=== PATIENT | male | born 1995 | race Caucasian/White ===

== ENCOUNTER 2020-07-27 23:56 | Emergency (ER) | payer OTHER, MEDICAID, SELFPAY ==
[2020-07-27 23:57] VITALS: BP 132/82; PULSE 108; RESP 15; TEMP 37.3; O2SAT 99; BMI 21.5
--- NOTE | 2020-07-28 00:05 | EKG12_ITS ---
Test Reason : CP Blood Pressure : / mmHG Vent. Rate : 108 BPM Atrial Rate : 108 BPM P-R Int : 124 ms QRS Dur : 078 ms QT Int : 316 ms P-R-T Axes : 075 075 -06 degrees QTc Int : 423 ms Sinus tachycardia Nonspecific T wave abnormality Abnormal ECG Confirmed by ALLAN SEPULVEDA, VINICIUS ([id number]), social media editor GLENDY RENNER ([id number]) on 07/28/2020 9:09:07 AM Referred By: WILLIAM Confirmed By:VINICIUS LEMUS MD
[2020-07-28 00:27] VITALS: BP 119/83; PULSE 104; RESP 15; O2SAT 97
--- NOTE | 2020-07-28 00:43 | RAD_ITS ---
STUDY: X-RAY CHEST REASON FOR EXAM: Male, 24 years old. CHEST PAIN TECHNIQUE: Single AP portable view of the chest. 2 images COMPARISON: None. FINDINGS: There is no demonstrated pneumothorax. There are superimposed monitor leads. The lungs are clear and hyperexpanded. There is no demonstrated pleural abnormality. Normal size heart. Normal mediastinum and erik. Normal visualized pulmonary arteries. Normal visualized aortic arch and descending thoracic aorta. Normal visualized thoracic spine. Normal visualized ribs, clavicles, and shoulders. There is no demonstrated abnormality of the visualized soft tissue structures of the upper abdomen. RAD/Chest 1 View (Portable) IMPRESSION: Hyperinflation. There is no demonstrated pneumothorax. Electronically Signed: Mireya Ferrer MD at 1:13 EDT , Service support ,
--- NOTE | 2020-07-28 00:44 | ED.VIS.GEN ---
History of Present Illness Chief Complaint: Chest Pain Narrative: Patient presents with subjective fevers, some chest pain on the right side its been on and off for about a week and a half. He has no cough, he has no upper airway congestion. He denies any significant dyspnea. He has no back pain or tearing sensation. No abdominal pain nausea or vomiting. He was seen at an urgent care, was prescribed amoxicillin he significantly improved and now symptoms are somewhat returning. He was not tested for Covid. Past Medical History - Allergies and Home Meds Allergies/Adverse Reactions: Allergies No Known Allergies Allergy (Verified 07/27/20 23:57) Primary Care Physician: NOT,DEFINED [NON-STAFF] - Past Medical History: None Smoking Status: Heavy Smoker (>10/day) Review of Systems General: Reports: Fever, Subjective Eyes: Denies: Visual changes - bilaterally Cardiovascular: Reports: Chest pain. Denies: Palpitations, Heart racing Respiratory: Denies: Dyspnea, Cough Gastrointestinal: Denies: Abdominal pain, Nausea Genitourinary: Denies: Dysuria Musculoskeletal: Denies: Myalgias Neurological: Denies: Headache, Weakness Hematologic: Denies: Easy bruising, Easy bleeding Physical Exam Vital Signs/Narrative: Vital Signs Temp Pulse Resp BP Pulse Ox 07/28/20 00:27 104 H 15 119/83 H 97 07/27/20 23:57 99.1 F 108 H 15 132/82 H 99 General: Well nourished, - - He appears comfortable in bed. ENT: Moist mucous membranes. Negative for: Nasal congestion Cardiovascular: Regular rate, Regular rhythm Respiratory: No distress, CTA bilaterally Abdomen: Soft, Nontender Back: Nontender, Normal Inspection. Negative for: CVA tenderness Extremities: Nontender, No edema Skin: Normal color Neurological: Alert, Normal Strength, Normal Sensation Diagnostic/Tx/Re-eval - Medical Decision Making Is a normal work-up he appears well, I believe he safe for discharge. He likely has a viral upper respiratory infection though it is self-limited however I told him that he has the possibility of having Covid and I will not get the results for another few days, until then he needs to self quarantine. ED Disposition - Plan for ED Patient: Disposition: Home or Assisted Living Diagnosis: Upper respiratory infection Prescriptions: Naproxen [Naprosyn] 500 mg PO BID PRN #20 tab Transmission Status: Pending to [facility]/pharmacy #[id number] Referrals: Aime Henderson MD [STAFF PHYSICIAN] -
[2020-07-28 01:14] LABS: Absolute Lymphocyte Count 5.29 X10^3/uL (0.83-4.51); Absolute Neutrophil Count 4.7 X10^3/uL (2.0-7.7); Basophil# 0.18 X10^3/uL; Basophil% 1.5 % (0-1); Eosinophil# 0.86 X10^3/uL; Eosinophils% 7.1 % (0-5); Hematocrit 39.4 % (40-54); Hemoglobin 13.5 g/dL (13.0-16.5); Lymphocyte # 5.29 X10^3/ul (4.0); Lymphocyte % 43.9 % (19-41); Mean Corp Hgb Conc 34.3 g/dL (32-36); Mean Corpuscular Hgb 28.5 pg (27.0-32.0); Mean Corpuscular Volume 83.3 fL (80-94); Mean Platelet Vol. 8.6 fl (6.2-12.0); Monocyte# 0.96 X10^3/uL; NRBC Flagged by Analyzer 0 % (0-5); Neutrophil # 4.67 X10^3/uL (2.7-7.7); Neutrophil % 38.8 % (47-70); POSITIVE DIFFERENTIAL YES; POSITIVE MORPHOLOGY YES; Platelet Count 261 K/mm3 (150-450); RBC Distribution Width CV 13.6 % (11.6-14.6); RBC Distribution Width SD 41.3 fl (35.1-43.9); Red Blood Count 4.73 M/mm3 (4.6-6.2)
[2020-07-28 01:28] LABS: D-Dimer Quantitative (DVT/PE) 1.51 FEU/ug/m (0.27-0.49)
--- NOTE | 2020-07-28 01:29 | CT_ITS ---
STUDY: CTA CHEST REASON FOR EXAM: Male, 24 years old. CP TODAY WITH ELEVATED D-DIMER, SMOKER RADIATION DOSAGE (If Supplied By Facility): CTDIvol = ( 7.87 ) mGy, DLP = ( 221.99 ) mGycm TECHNIQUE: The examination was performed with the intravenous administration of IV 75mL Isovue-370. Post-processing of the angiographic images was performed, with multiplanar reformation and 3D reconstruction. Individualized dose optimization techniques were used for this CT. COMPARISON: Portable chest x-ray 07/28/2020 FINDINGS: Normal enhancement of the main pulmonary artery and right and left pulmonary arteries. Normal enhancement of the bilateral peripheral pulmonary arteries. There is no demonstrated pulmonary embolism. Normal thoracic aorta and visualized great vessels. There is no demonstrated aortic dissection. Normal heart and pericardium. Normal mediastinum. Normal hilar regions. Normal visualized trachea and bronchi. The lungs are hyper expanded, with flattening of the hemidiaphragms. Hyperinflation of lung parenchyma with bilateral apical small bullae formation. Small noncalcified nodule in the right lower lobe image 133 series 2, measuring 0.26 cm. Small noncalcified nodule in the left lower lobe adjacent to the pleura is 0.21 cm image 76 series 2. Normal pleura. Normal chest wall structures. Normal osseous structures. Normal visualized upper abdomen. CT/CTA Chest W/WO Contrast IMPRESSION: No demonstrated pulmonary embolism, aneurysm, leak or arterial dissection. Hyperinflation with mild apical bullous formation. Bilateral small less than 3 mm noncalcified pulmonary nodules as above. The?Fleischner Society pulmonary nodule recommendations 2017 guidelines Multiple Multiple nodules size: <6 mm * low-risk patients: no routine follow-up * high-risk patients: optional CT at 12 months Electronically Signed: Mireya Ferrer MD at 2:26 EDT , Service support ,
--- NOTE | 2020-07-28 01:32 | ED.RN ---
D-DIMER OF 1.51 REPORTED TO . VERBALIZES UNDERSTANDING
[2020-07-28 01:35] LABS: ALB/GLOB Ratio 0.9 RATIO (0.9-2.4); AST(SGOT) 41 U/L (15-37); Alanine Aminotransfer ALT/SGPT 65 U/L (16-61); Albumin, Serum 3.3 g/dL (3.2-5.0); Alkaline Phosphatase 87 U/L (45-117); Anion Gap 5 (5-15); BUN 17 mg/dL (7-18); BUN/Creat Ratio 17.2 RATIO (10-20); Calcium,Total 8.6 mg/dL (8.5-10.1); Chloride 105 mmol/L (98-107); Creatinine, Serum 0.99 mg/dL (0.70-1.30); Differential Indicated SCAN CRITERIA MET; EST Glomerular Filtration Rate 97 mL/min (>60); Est Glom Filt Rate - Afr Amer 117 mL/min (>60); Estimated Creatinine Clearance 96.92 ml/min; Globulin 3.8 g/dL (2.2-4.2); Glucose 114 mg/dL (74-106); Protein, Total 7.1 g/dL (6.4-8.2); Sodium Level 136 mmol/L (136-145)
[2020-07-28 01:36] LABS: Differential Comment SCANNED
[2020-07-28 02:00] VITALS: BP 122/80; PULSE 95; RESP 16; O2SAT 98
[2020-07-28 03:02] VITALS: BP 161/72; PULSE 99; RESP 15; O2SAT 100
== END 2020-07-28 03:06 | disposition home or self-care (01) ==
PROVIDERS: Emergency Provider Emergency Medicine
DX: J06.9 Acute upper respiratory infection, unspecified (principal); F17.200 Nicotine dependence, unspecified, uncomplicated
CPT/HCPCS: 71045; 71275; 80053; 84484; 85025; 85379; 87635; 93005; 99285; Q9967; A4216; U0003

== ENCOUNTER 2022-08-21 06:33 | Emergency (ER) | payer MEDICAID, SELFPAY ==
[2022-08-21 06:37] VITALS: BP 127/85; PULSE 88; RESP 18; TEMP 36.7; O2SAT 98; BMI 22.6
--- NOTE | 2022-08-21 06:41 | RAD_ITS ---
STUDY: X-RAY - RIGHT HAND REASON FOR EXAM: Male, 26 years old. Right hand pain, proximal second and fourth metacarpals TECHNIQUE: 3 view(s) of the hand. COMPARISON: None. FINDINGS: Normal radiocarpal articulation. Normal distal radioulnar joint. Normal visualized carpal bones. Normal carpal articulations Normal carpometacarpal articulation of the thumb. Normal second through fifth carpometacarpal joints. Normal metacarpi. Normal metacarpophalangeal joint of the thumb. Normal interphalangeal joint of the thumb. Normal proximal and distal phalanges of the thumb. Normal metacarpophalangeal joints of the second through fifth fingers. Normal proximal and distal interphalangeal joints of the second through fifth fingers. Normal phalanges of the second through fifth fingers. Mild dorsal soft tissue swelling. RAD/Hand Min 3 Views IMPRESSION: Mild dorsal soft tissue swelling. No fracture or dislocation. Electronically Signed: Aime Dupree MD at 7:03 [facility] ,
--- NOTE | 2022-08-21 06:48 | EDS_ITS ---
HPI History of Present Illness Chief Complaint: Upper Extremity Injury Informant: patient Narrative Narrative: 26-year-old male presenting to the emergency room with right hand pain. Patient states that his pizza dropped out of his oven and he got mad and punched his refrigerator. He felt something pop near the base of his right hand pushed on it and felt a couple pops. He states its more painful than his prior injury to his left hand where he broke his finger. He states that that time he treated himself that this is more painful so he wanted to get checked out. He is right- handed. PFSH PFSH Medical History no medical history Home Medications NK 08/21/22 [History Last Taken Unknown] Allergy/AdvReac Type Severity Reaction Status Date / Time No Known Allergies Allergy Verified 08/21/22 06:34 Surgical History no surgical history Social History Smoking Status: Current every day smoker tobacco type: cigarettes ROS ROS ED Constitutional Constitutional ED: Denies chills or weight loss Eyes Eyes: Denies change in vision or diplopia ENT ENT ED: Denies ear pain, rhinorrhea or sore throat Cardiovascular Cardiovascular: Denies chest pain, orthopnea, palpitations or racing heartbeat Respiratory/Chest Respiratory/Chest: Denies cough, dyspnea or orthopnea Gastrointestinal Gastrointestinal: Denies abdominal pain, diarrhea, nausea or vomiting Genitourinary Genitourinary ED: Denies dysuria, hematuria or urinary frequency Musculoskeletal Musculoskeletal: Reports other Details: Right hand pain ; Denies arthralgias or myalgias Integumentary Denies abscess or rash Neurologic Neurologic: Denies headache(s) or weakness Psychiatric Psychiatric: Denies anxiety, depression, suicidal ideation or suicidal thoughts Endocrine Endocrinology: Denies polydipsia, polyphagia or polyuria Allergic/Immunologic Allergic/Immunologic ED: Denies mouth swelling, tongue swelling or urticaria EXAM Physical Exam Const Vital Signs: 08/21/22 06:37 Temperature 98.1 F Temperature Source Oral Pulse Rate 88 Respiratory Rate 18 Blood Pressure 127/85 H Blood Pressure Mean 99 Pulse Ox 98 Oxygen Delivery Method Room Air Positive well nourished and well developed General Appearance ED: well developed HEENT Reports normocephalic, head/scalp atraumatic and moist mucous membranes Eyes PERRL and EOMs intact bilaterally Neck full ROM, no lymphadenopathy, supple and no JVD Resp normal respiratory effort and clear to auscultation bilaterally Cardio regular rate, regular rhythm and no murmurs GI normal to inspection, nondistended, normoactive bowel sounds and non-tender Palpation: soft Back/Spine no CVA tenderness and normal ROM Extremity Extremity Narrative: There is some swelling and tenderness over the dorsum of the right hand along the carpal bones. No crepitance. Neurovascularly appears intact. No tendon deficits. There are no breaks in the skin General Extremety ED: Negative for edema General Extremity: Negative for edema Neuro oriented x3 and CN's II-XII intact bilaterally Sensorium / Orientation: alert Motor Exam: strength 5/5 throughout Psych mental status grossly normal Mood & Affect: Negative for depressed or tearful Skin no rashes or lesions noted and no wounds MDM MDM MDM Narrative Medical decision making narrative: My interpretation of the plain films is possible fracture of the triquetrum. However radiology reads this is normal. Patient will be placed in a Velcro wrist splint. Instructions to follow-up 10 to 14 days if not improved. Discharge Plan Triage Chief Complaint: Upper Extremity Injury ED Provider: Wilber Woodard Dx/Rx/DC Orders Clinical Impression: Sprain of hand, right Instructions: ED Hand Sprain Prescriptions: No Action NK Primary Care Provider: Care Physician,No Primary Referrals: Kenny Langston DO [Med Staff - Active Staff] - 10-14 Days if not better Care Physician,No Primary [Primary Care Provider] - Disposition Disposition: Home, Self Care
== END 2022-08-21 07:30 | disposition home or self-care (01) ==
PROVIDERS: Emergency Provider Emergency Medicine; Visit Provider Emergency Medicine
DX: S63.91XA Sprain of unspecified part of right wrist and hand, initial encounter (principal); F17.210 Nicotine dependence, cigarettes, uncomplicated; X58.XXXA Exposure to other specified factors, initial encounter
CPT/HCPCS: 73130; 99283

== ENCOUNTER 2023-10-20 17:13 | Emergency (ER) | payer MEDICAID, SELFPAY ==
[2023-10-20 17:14] VITALS: BP 123/93; PULSE 106; RESP 18; TEMP 35.9; BMI 24.0
[2023-10-20 17:18] VITALS: BP 123/93; PULSE 106; RESP 16; TEMP 35.9
--- NOTE | 2023-10-20 18:10 | EDS_ITS ---
HPI History of Present Illness Chief Complaint: General Illness Informant: patient Onset/Context/Timing Onset: Yesterday Context: Gradual Onset Timing: Continuous Worsened by: Nothing Relieved by: Nothing Narrative Narrative: Patient presents with nausea and vomiting that began yesterday. Patient states she was having difficulty keeping anything down yesterday and today. Patient states it is gradually getting worse. Patient states that today he noted small streaks of blood in his emesis. Patient states this occurred 1 time. Patient admits to a sore throat. Patient admits to some subjective chills. Patient also admits to some dysuria. Patient denies any diarrhea, melena, or hematochezia. Patient denies any fevers. PFSH PFSH Medical History no medical history no medical history Home Medications NK 08/21/22 [History Last Taken Unknown] Allergy/AdvReac Type Severity Reaction Status Date / Time No Known Allergies Allergy Verified 10/20/23 17:14 Surgical History (Updated 10/20/23 @ 18:[address] Torey Leary DO) S/P ORIF (open reduction internal fixation) fracture Social History Smoking Status: Current every day smoker tobacco type: cigarettes ROS ROS ED Constitutional Constitutional ED: Reports chills and subjective; Denies fever(s) Eyes Eyes: Denies blurry vision or change in vision ENT ENT ED: Reports sore throat; Denies rhinorrhea Cardiovascular Cardiovascular: Denies chest pain or palpitations Respiratory/Chest Respiratory/Chest: Denies cough or dyspnea Gastrointestinal Gastrointestinal: Reports nausea and vomiting; Denies abdominal pain, diarrhea or melena Genitourinary Genitourinary ED: Reports dysuria; Denies hematuria Musculoskeletal Musculoskeletal: Reports neck pain; Denies back pain Integumentary Denies abscess or rash Neurologic Neurologic: Reports headache(s); Denies weakness Allergic/Immunologic Allergic/Immunologic ED: Denies mouth swelling or urticaria EXAM Physical Exam Const Vital Signs: 10/20/23 17:14 10/20/23 17:18 10/20/23 17:47 Temperature 96.7 F L 96.7 F L Temperature Source Temporal Temporal Pulse Rate 106 H 106 H Respiratory Rate 18 16 Respiratory Effort Normal Non-Labored Respiratory Pattern Normal Blood Pressure 123/93 H 123/93 H Blood Pressure Mean 103 103 Oxygen Delivery Method Room Air Positive well nourished and well developed General Appearance ED: well developed and NAD HEENT Reports moist mucous membranes Neck supple and no JVD Resp normal respiratory effort and clear to auscultation bilaterally Cardio regular rhythm Rate: tachycardic GI non-tender and non-distended Auscultation: normoactive bowel sounds Palpation: soft Neuro oriented x3, CN's II-XII intact bilaterally and no sensory deficits noted Sensorium / Orientation: alert Motor Exam: strength 5/5 throughout Psych mental status grossly normal MDM MDM MDM Narrative Medical decision making narrative: Differential diagnosis includes gastroenteritis, dehydration, electrolyte abnormality, Janessa-Segura tear, anemia, peptic ulcer disease, duodenal ulcer, pancreatitis, and viral illness. CBC will be obtained to assess for leukocytosis and anemia. Comprehensive metabolic profile will be obtained to assess for hepatic function, renal function, and electrolyte abnormality. Lipase will be obtained to assess for pancreatitis. Urinalysis will be obtained to assess for urinary tract infection and hematuria. Lab Data Attestation: I reviewed the patient's lab results. Lab results narrative: CBC was reviewed and was within normal limits. Comprehensive metabolic profile was reviewed. Potassium was low at 3.1. The remainder was within normal limits. Lipase was reviewed and was normal. Urinalysis was reviewed. There is no evidence of urinary tract infection or hematuria. Labs: Laboratory Results - last 24 hr 10/20/23 10/20/23 17:37 19:05 WBC 9.1 RBC 5.29 Hgb 14.4 Hct 41.9 MCV 79.2 L MCH 27.2 MCHC 34.4 RDW Std Deviation 37.6 RDW Coeff of Lu 13.2 Plt Count 243 MPV 9.5 Immature Gran % (Auto) 0.400 Neut % (Auto) 50.8 Lymph % (Auto) 34.9 Atkinson % (Auto) 9.5 Eos % (Auto) 3.7 Baso % (Auto) 0.7 Absolute Neuts (auto) 4.6 Absolute Lymphs (auto) 3.17 Nucleated RBC % 0 Sodium 139 Potassium 3.1 L Chloride 106 Carbon Dioxide 26.0 Anion Gap 7 BUN 19 H Creatinine 1.12 Estim Creat Clear Calc 87.82 Est GFR (MDRD) Af Amer 99 Est GFR (MDRD) Non-Af 82 BUN/Creatinine Ratio 17.0 Glucose 91 Calcium 9.1 Total Bilirubin 0.50 AST 22 ALT 36 Alkaline Phosphatase 59 Total Protein 7.4 Albumin 3.9 Globulin 3.5 Albumin/Globulin Ratio 1.1 Lipase 22 Urine Color Yellow Urine Clarity Clear Urine pH 6.0 Ur Specific [place] 1.020 Urine Protein 30 H Urine Glucose (UA) Normal Urine Ketones 5 H Urine Occult Blood 10 H Urine Nitrite Negative Urine Bilirubin Negative Urine Urobilinogen 4 H Ur Leukocyte Esterase 25 H Urine RBC 0 SEEN Urine WBC 0-5 SEEN Ur Squamous Epith Cells 0 SEEN Urine Bacteria 0 SEEN Urine Mucus 1+ Treatment and Re-Evaluation :: Patient was given IV fluids and Zofran. Patient was given a dose of oral potassium here. I went to advise the patient of his findings. Patient was no longer in the room. Patient had left prior to completing discharge instructions. IV was removed. Discharge Plan Triage Chief Complaint: General Illness ED Provider: Torey Leary Dx/Rx/DC Orders Clinical Impression: Hematemesis of unknown cause, Nausea and vomiting Instructions: ED Vomiting (Adult) Prescriptions: No Action NK Primary Care Provider: Care Physician,No Primary Referrals: Care Physician,No Primary [Primary Care Provider] - Disposition Disposition: Home, Self Care Discharge Date/Time: 10/20/23 21:02
--- OUTSIDE RECORDS SUMMARY | 2023-10-20 18:11 | XMS RPT_ITS | CCD ---
Author Name Unknown Address [address] [place] [address] Organization [facility] Care Team Providers Care Field Crop Harvest Worker Name Role Phone Elliot Charles Unavailable Unavailable PROVIDER, UNKNOWN Unavailable Unavailable No, PCP Unavailable Unavailable WILBER MICHAEL Primary Care Unavailable KARIN, ATIYA Referring Unavailable WILBER MICHAEL Primary Care Unavailable Cailin VOCATIONAL REHABILITATION COUNSELOR.SENIOR ART DIRECTOR, DNP, Wilber Primary Care Provider Medications Current Medications Medication Drug Class(es) Dates Sig (Normalized) Sig (Original) predniSONE 10 mg oral tablet (1 source) Start: 03-11-2023 End: 03-23-2023 predniSONE (DELTASONE) 10 mg tablet Take 4 tabs daily x 3 days, then 3 tabs x 3 days, 2 tabs x 3 days, then 1 tab x3 days with food. 30 tablet 0 03/11/2023 03/23/2023 Active Completed/Discontinued Medications Medication Drug Class(es) Dates Sig (Normalized) Sig (Original) cyclobenzaprine hydrochloride 5 mg oral tablet (1 source) Muscle Relaxant Start: 10-14-2020 End: 03-11-2023 take 1-2 tablets by mouth every eight hours as needed for pain cyclobenzaprine (FLEXERIL) 5 mg tablet Indications: Acute midline low back pain with left-sided sciatica Take 1-2 tablets by mouth every 8 hours as needed for pain or muscle spasm. 30 tablet 1 10/14/2020 03/11/2023 Discontinued (Course of therapy completed) Problems Active Problems Problem Classification Problem Date Documented Da te Episodic/Chronic External Injury - Struck by; against (2 sources) Striking against or struck by other objects, initial encounter; Translations: [Striking against or struck by other objects, init encntr] Onset: 07-07-2017 Spondylosis; intervertebral disc disorders; other back problems (2 sources) Cervicalgia; Translations: [Neck pain] Onset: 03-11-2023 Episodic Substance-related disorders (2 sources) Nicotine dependence, unspecified, uncomplicated; Translations: [Nicotine dependence, unspecified, uncomplicated] Onset: 07-07-2017 Chronic Past or Other Problems Problem Classification Problem Date Documented Da te Episodic/Chronic Other injuries and conditions due to external causes (4 sources) Unspecified injury of unspecified wrist, hand and finger(s), initial encounter; Translations: [Unspecified injury of right wrist, hand and finger(s), initial encounter] Onset: 07-07-2017 Episodic Results Test Name Value Interpretation Reference Range Facil ity Vital Signs Date Time Vital Sign Value Performing Clinician Elizabeth echeverria 03-11-2023 09:35-0400 Body temperature 97 [degF] Atiya Older VOCATIONAL REHABILITATION COUNSELOR.SENIOR ART DIRECTOR Work Phone: [facility] 03-11-2023 09:35-0400 Body weight 66.22 kg Atiya Older VOCATIONAL REHABILITATION COUNSELOR.SENIOR ART DIRECTOR Work Phone: [facility] 03-11-2023 09:35-0400 Diastolic blood pressure 88 mm[Hg] Atiya Older VOCATIONAL REHABILITATION COUNSELOR.SENIOR ART DIRECTOR Work Phone: [facility] 03-11-2023 09:35-0400 Heart rate 77 /min Atiya Older VOCATIONAL REHABILITATION COUNSELOR.SENIOR ART DIRECTOR Work Phone: [facility] 03-11-2023 09:35-0400 Respiratory rate 21 /min Atyia Older VOCATIONAL REHABILITATION COUNSELOR.SENIOR ART DIRECTOR Work Phone: [facility] 03-11-2023 09:35-0400 SaO2% (BldA) [Mass fraction] 98 % Atiya Older VOCATIONAL REHABILITATION COUNSELOR.SENIOR ART DIRECTOR Work Phone: [facility] 03-11-2023 09:35-0400 Systolic blood pressure 122 mm[Hg] Atiya Older VOCATIONAL REHABILITATION COUNSELOR.SENIOR ART DIRECTOR Work Phone: [facility] Encounters Encounter Date Encounter Type Care Provider Facility Start: 03-11-2023 End: 03-11-2023 anurag MICHAEL Facility:[facility] Start: 03-11-2023 End: 03-11-2023 Patient encounter procedure Atiya Older VOCATIONAL REHABILITATION COUNSELOR.SENIOR ART DIRECTOR Work Phone: [facility] Plan of Treatment Date Care Activity Detail Author Start: 06-09-2023 Influenza vaccination INFLUENZA (Sea son Ended) [facility] Start: 10-09-2022 DEPRESSION ASSESSMENT DEPRESSION ASS ESSMENT [facility] Start: 2012 Urine microalbumin profile DTAP,TDAP,TD (1 - Tdap) [facility] Start: 2011 HEPATITIS C SCREENING HEPATITIS C SC REENING [facility] Start: 2011 HIV SCREENING HIV SCREENING [facility] Start: 1999 PNEUMOCOCCAL (1 - PCV) PNEUMOCOCCAL (1 - PCV) [facility] Start: 05-12-1994 COVID-19 VACCINE (#1) COVID-19 VACCI NE (#1) [facility] Start: 1993 HEPATITIS B (1 of 3 - 3-dose series) HEPATITIS B (1 of 3 - 3-dose series) [facility] Payers Date Payer Category Payer Medicaid [id number] 2022 Medicaid [employer] [facility] [id number] 2022-Present [phone] [address] [place] [address] Medicaid [id number] Unknown Social History Date Type Detail Facility Start: 03-11-2023 Tobacco smoking stat us [facility] Smokes tobacco daily [facility] History of tobacco use Cigarette Smoker C [facility] Start: 03-11-2023 Cigarettes smoked current (pack per day) - Reported 1 [facility] Start: 03-11-2023 Tobacco use and exposure Smoke less tobacco non-user [facility] Start: 03-11-2023 Alcohol intake Current non-dr barrel waterer of alcohol (finding) [facility] Start: 10-14-2020 History SDOH Alcohol Frequency 1 [facility] Start: 10-14-2020 History SDOH Alcohol Std Drinks 98 [facility] Start: 10-14-2020 History SDOH Social Connections Phone 5 [facility] Start: 10-14-2020 History SDOH Social Connections Get Together 4 [facility] Start: 10-14-2020 History SDOH Social Connections Zoroastrianism 3 [facility] Start: 10-14-2020 History SDOH Social Connections Living 8 [facility] Start: 10-14-2020 History SDOH Physica l Activity MPS 15 [facility] Start: 10-14-2020 History SDOH Food Worry 2 [facility] Start: 10-14-2020 Education 12 [facility] Start: 1993 Sex Assigned At Male C [facility] Work Phone: Progress note 03-11-2023 Note Date & Type Note Facility 03-11-2023 Note HNO ID: [id number] Author: RT Collin(R) Service: ? Author Type: Flexible Babysitter Type: Progress Notes Filed: 03/11/2023 10:03 AM Note Text: Radiology Service Progress Note PATIENT NAME: Virginia Renteria DATE OF SERVICE: March 11, 2023 TIME: 9:54 AM PATIENT IDENTITY VERIFICATION COMPLETED USING TWO (2) IDENTIFIERS: Name and Date of confirmed by patient verbally. FALL SCREENING: Has the patient had 2 falls in the last year or 1 fall with injury or currently using an Ambulatory Assistive Device (Walker, Cane, Wheelchair, Crutches, etc.)? No PATIENT GENDER DATA: Male PATIENT RELEVANT IMPLANT DATA REVIEWED: Yes RADIOLOGY DEPARTMENT: General X-ray: Exam(s) Completed: Spine X-Ray(s): Cervical AP / LAT / OBL PERIPHERAL IV DATA: Not applicable SIGNED BY: RT Collin(R) March 11, 2023 9:54 AM [facility] Progress note 03-11-2023 Note Date & Type Note Facility 03-11-2023 Note HNO ID: [id number] Author: Atiya Hill APRN.CNP Service: ? Author Type: Nurse Practitioner Type: Progress Notes Filed: 03/11/2023 11:01 AM Note Text: CC: Patient presents with: Neck Pain: Right sided neck pain and it shoots down to right shoulder x 2 months HPI Virginia Renteria is a 27 year old male who presents today for above. Located: along cervical spine and shoots down to the right shoulder at times Described as: sharp Cause: No injury however he was cracking his neck and felt immediate sharp pain Pain is aggravated by: moving head Pain is alleviated by rest, massage, Tylenol and ibuprofen Denies arm pain, numbness, tingling or weakness Ever had pain like this before: No REVIEW OF SYSTEMS See HPI No past medical history on file. PAST SURGICAL HISTORY Procedure Laterality Date ORTHOPEDICS SURGERY HX Left 2006 left wrist fracture ALLERGIES Patient has no known allergies. MEDICATIONS No prescriptions on file. FAMILY HISTORY Problem Relation Age of Onset No Known Problems Mother No Known Problems Father No Known Problems Brother Dementia Maternal Grandmother Aneurysm Maternal Grandfather Brain No Known Problems Paternal Grandmother No Known Problems Paternal Grandfather No Known Problems Brother No Known Problems Daughter Social History Tobacco Use Smoking status: Every Day Packs/day: 1.00 Years: 9.00 Pack years: 9.00 Types: Cigarettes Smokeless tobacco: Never Vaping Use Vaping Use: Never used Substance Use Topics Alcohol use: No Drug use: No PHYSICAL EXAM BP 122/88 Pulse 77 Temp 36.1 ?C (97 ?F) Resp 21 Wt 66.2 kg (146 lb) SpO2 98% General Appearance: well appearing, in no acute distress, alert Neck: No deformities or swelling. Mild tenderness with palpation of cervical spine and with palpation of right paraspinal muscles. ROM: Full but painful. * * *Final Report* * * DATE OF EXAM: Mar 11 2023 10:04AM [id number] - XR CERVICAL 4V AP/LAT/OBL / PROCEDURE REASON: Cervicalgia * * * * Physician Interpretation * * * * EXAMINATION: XR CERVICAL 4V AP/LAT/OBL PATIENT/TECHNOLOGIST PROVIDED HISTORY: Neck pain and headaches x 2 months. Patient stretched and cracked neck after waking up one morning and has had pain ever since. CLINICAL INFORMATION: 27 years old Male with Cervicalgia TECHNIQUE: XR CERVICAL 4V AP/LAT/OBL Laterality: NOT APPLICABLE Number of different views (projections): 4 COMPARISON: None RESULT: Cervical spine: Counting reference: Craniocervical junction. Anatomic Variants: None. Post-op assessment: N/A Alignment: Normal cervical lordosis. Vertebral bodies: Vertebral body heights are maintained. Spine articulations: Disc spaces are maintained. Oblique views demonstrate patent bilateral neural foramina. ASSESSMENT/PLAN: 1. Cervicalgia - ICD9: 723.1, ICD10: M54.2 - XR CERV OTHER 4V AP/LAT/OBL negative No alarm symptoms or exam findings. Start treatment with prednisone burst with taper Symptom management discussed, see patient instructions Follow-up with PCP in 1-2 weeks if no improvement or sooner if worsening Prescription instructions reviewed with patient as applicable. Potential red flag symptoms discussed with the patient. Reviewed appropriate action plan to take if red flag symptoms occur. Patient agreeable to treatment plan. Atiya Hill APRN.CNP [facility]23 Patient Instructions Note Date & Type Note Facility 03-11-2023 Instructions Atiya Hill APRN.CNP - 03/11/2023 10:29 AM EDT Start prednisone burst with taper. Do not take ibuprofen (Motrin , Advil ) or naproxen (Aleve ) while taking prednisone. Tylenol as needed is okay. Can also try topical medications such as Icy Hot, Biofreeze or Lidocaine. Non-medication measures: Ice for localized pain/tenderness and/or heat. Stretching and massage may also be beneficial. Follow-up with your PCP in 1-2 weeks if no improvement documented in this encounter [facility] History of Present illness Narrative 03-11-2023 Atiya Hill APRN.CNP - 03/11/2023 9:42 AM EDT Note Date & Type Note Facility 03-11-2023 History of Presen t illness Narrative CC: Patient presents with: Neck Pain: Right sided neck pain and it shoots down to right shoulder x 2 months HPI Virginia Renteria is a 27 year old male who presents today for above. Located: along cervical spine and shoots down to the right shoulder at times Described as: sharp Cause: No injury however he was cracking his neck and felt immediate sharp pain Pain is aggravated by: moving head Pain is alleviated by rest, massage, Tylenol and ibuprofen Denies arm pain, numbness, tingling or weakness Ever had pain like this before: No REVIEW OF SYSTEMS See HPI No past medical history on file. PAST SURGICAL HISTORY Procedure Laterality Date ORTHOPEDICS SURGERY HX Left 2006 left wrist fracture ALLERGIES Patient has no known allergies. MEDICATIONS No prescriptions on file. FAMILY HISTORY Problem Relation Age of Onset No Known Problems Mother No Known Problems Father No Known Problems Brother Dementia Maternal Grandmother Aneurysm Maternal Grandfather Brain No Known Problems Paternal Grandmother No Known Problems Paternal Grandfather No Known Problems Brother No Known Problems Daughter Social History Tobacco Use Smoking status: Every Day Packs/day: 1.00 Years: 9.00 Pack years: 9.00 Types: Cigarettes Smokeless tobacco: Never Vaping Use Vaping Use: Never used Substance Use Topics Alcohol use: No Drug use: No PHYSICAL EXAM BP 122/88 Pulse 77 Temp 36.1 C (97 F) Resp 21 Wt 66.2 kg (146 lb) SpO2 98% General Appearance: well appearing, in no acute distress, alert Neck: No deformities or swelling. Mild tenderness with palpation of cervical spine and with palpation of right paraspinal muscles. ROM: Full but painful. * * *Final Report* * * DATE OF EXAM: Mar 11 2023 10:04AM WOX [id number] - XR CERVICAL 4V AP/LAT/OBL / PROCEDURE REASON: Cervicalgia * * * * Physician Interpretation * * * * EXAMINATION: XR CERVICAL 4V AP/LAT/OBL PATIENT/TECHNOLOGIST PROVIDED HISTORY: Neck pain and headaches x 2 months. Patient stretched and cracked neck after waking up one morning and has had pain ever since. CLINICAL INFORMATION: 27 years old Male with Cervicalgia TECHNIQUE: XR CERVICAL 4V AP/LAT/OBL Laterality: NOT APPLICABLE Number of different views (projections): 4 COMPARISON: None RESULT: Cervical spine: Counting reference: Craniocervical junction. Anatomic Variants: None. Post-op assessment: N/A Alignment: Normal cervical lordosis. Vertebral bodies: Vertebral body heights are maintained. Spine articulations: Disc spaces are maintained. Oblique views demonstrate patent bilateral neural foramina. ASSESSMENT/PLAN: 1. Cervicalgia - ICD9: 723.1, ICD10: M54.2 - XR CERV OTHER 4V AP/LAT/OBL negative No alarm symptoms or exam findings. Start treatment with prednisone burst with taper Symptom management discussed, see patient instructions Follow-up with PCP in 1-2 weeks if no improvement or sooner if worsening Prescription instructions reviewed with patient as applicable. Potential red flag symptoms discussed with the patient. Reviewed appropriate action plan to take if red flag symptoms occur. Patient agreeable to treatment plan. Atiya Hill APRN.CNP documented in this encounter [facility] Evaluation note Note Date & Type Note Facility documented in this encounter [facility] Reason for referral (narrative) Diagnostic Procedure Only (Urgent) - Closed Note Date & Type Note Facility Referral ID Status Reason Start Date Expiration Date V isits Requested Visits Authorized [id number] Closed Auto-Generate d Referral 03/11/2023 04/09/2024 1 1 [facility] Summary Purpose Family History No Family History Records FoundNo Family History Records Found Advance Directives No Advanced Directives Records FoundNo Advanced Directives Records Found Additional Source Comments (unrecognized sect ion and content) No Status Records FoundNo Status Records Found INFORMATION SOURCE (unrecogn ized section and content) DATE CREATED AUTHOR AUTHOR'S ORGANIZ ATION 03/18/2023 [facility] Source Comments (unrecognize d section and content) In the event this informatio n is protected by the Federal Confidentiality of Alcohol and Drug Abuse Patient Records regulations: The Federal rules restrict any use of the information to criminally investigate or prosecute any alcohol or drug abuse patient.[facility] Reason for Visit (unrecogniz ed section and content) Care Teams (unrecognized sec tion and content) FOR RECORDS PERTAINING TO PATIENTS WHO ARE OR HAVE BEEN ENROLLED IN A CHEMICAL DEPENDENCY/SUBSTANCEABUSE PROGRAM, SOME INFORMATION MAY BE OMITTED. This clinical summary was aggregated from multiple sources. Caution should be exercised in using it in the provision of clinical care. This summary normalizes information from multiple sources, and as a consequence, information in this document may materially change the coding, format and clinical context of patient data. In addition, data may be omitted in some cases. CLINICAL DECISIONS SHOULD BE BASED ON THE PRIMARY CLINICAL RECORDS. [employer] [facility]. provides no warranty or guarantee of the accuracy or completeness of information in this document.
[2023-10-20] MEDS: Ondansetron 4 MG/2 ML Vial IV (18:40)
[2023-10-20] MEDS: 0.9% Normal Saline (1000mL) 1,000 ML 1000 ML IV (18:40)
[2023-10-20 18:58] LABS: Absolute Lymphocyte Count 3.17 X10^3/uL (0.83-4.51); Absolute Neutrophil Count 4.6 X10^3/uL (2.0-7.7); Basophil# 0.06 X10^3/uL; Basophil% 0.7 % (0-1); Eosinophil# 0.34 X10^3/uL; Eosinophils% 3.7 % (0-5); Hematocrit 41.9 % (40-54); Hemoglobin 14.4 g/dL (13.0-16.5); Lymphocyte # 3.17 X10^3/ul (0.83-4.51); Lymphocyte % 34.9 % (19-41); Mean Corp Hgb Conc 34.4 g/dL (32-36); Mean Corpuscular Hgb 27.2 pg (27.0-32.0); Mean Corpuscular Volume 79.2 fL (80-94); Mean Platelet Vol. 9.5 fl (6.2-12.0); Monocyte# 0.86 X10^3/uL; Monocyte% 9.5 % (0-10); NRBC Flagged by Analyzer 0 % (0-5); Neutrophil # 4.61 X10^3/uL (2.7-7.7); Neutrophil % 50.8 % (47-70); Platelet Count 243 K/mm3 (150-450); RBC Distribution Width CV 13.2 % (11.6-14.6); RBC Distribution Width SD 37.6 fl (35.1-43.9); Red Blood Count 5.29 M/mm3 (4.6-6.2); White Blood Count 9.1 K/mm3 (4.4-11.0)
[2023-10-20 19:11] LABS: Bacteria 0 SEEN /hpf (None Seen); Red Blood Cells-Urine 0 SEEN /hpf (0-5); Squamous Epithelial Cells - UA 0 SEEN /hpf (0-5)
[2023-10-20 19:14] LABS: Color, Urine Yellow (Yellow); Glucose, Dipstick Normal (Normal); Ketone-Dipstick 5 mg/dl (Negative); Leukocyte Esterase-Dipstick 25 /ul (Negative); Nitrite-Dipstick Negative (Negative); Occult Blood-Urine 10 /ul (Negative); Protein-Dipstick 30 mg/dl (Negative); Urine Bilirubin Dipstick Negative (Negative); Urine Clarity Clear (Clear); Urine Urobilinogen 4 mg/dl (Normal)
[2023-10-20 19:18] LABS: ALB/GLOB Ratio 1.1 RATIO (0.9-2.4); AST(SGOT) 22 U/L (15-37); Alanine Aminotransfer ALT/SGPT 36 U/L (16-61); Albumin, Serum 3.9 g/dL (3.2-5.0); Alkaline Phosphatase 59 U/L (45-117); Anion Gap 7 (5-15); BUN 19 mg/dL (7-18); Calcium,Total 9.1 mg/dL (8.5-10.1); Chloride 106 mmol/L (98-107); Creatinine, Serum 1.12 mg/dL (0.70-1.30); EST Glomerular Filtration Rate 82 mL/min (>60); Est Glom Filt Rate - Afr Amer 99 mL/min (>60); Estimated Creatinine Clearance 87.82 ml/min; Globulin 3.5 g/dL (2.2-4.2); Glucose 91 mg/dL (74-106); Lipase 22 U/L (13-75); Potassium 3.1 mmol/L (3.5-5.1); Protein, Total 7.4 g/dL (6.4-8.2); Sodium Level 139 mmol/L (136-145)
[2023-10-20] MEDS: Potassium Chloride Oral Tablet 20 MEQ 40 MEQ PO (20:03)
[2023-10-20 20:21] LABS: Mucous, Urine 1+ /hpf (<or=2+); White Blood Cells 0-5 SEEN /hpf (0-5)
--- NOTE | 2023-10-20 20:25 | ED.RN ---
Pt requesting IV to be removed stating, this hurts and I don't want it in anymore RN explained purpose of IV and disadvantages of removing it before discharge. Assessment of IV indicated IV not blown and patent. Pt still insisting IV to be removed, IV removed at this time.
== END 2023-10-20 21:02 | disposition home or self-care (01) ==
PROVIDERS: Emergency Provider Emergency Medicine; Visit Provider Emergency Medicine
DX: K92.0 Hematemesis (principal); J02.9 Acute pharyngitis, unspecified; F17.210 Nicotine dependence, cigarettes, uncomplicated; R30.0 Dysuria; M54.2 Cervicalgia; R51.9 Headache, unspecified
CPT/HCPCS: 80053; 81001; 83690; 85025; 96361; 96374; 99283; J7030; A4216; J2405